=== PATIENT | female | born 1935 | race Caucasian/White ===

== ENCOUNTER 2016-03-19 10:40 | Emergency (ER) | payer OTHER ==
[~2016-03-19] VITALS: Ht 165.1 cm; Wt 49.9 kg
[~2016-03-19 10:40] MED LIST: AMITRIPTYLINE H10 M3 PO; ARIPIPRAZOLE10 MG PO; ARMOUR THYROID60 M1 PO; ASPIR 8181 MG PO; BENTYL 20 MG TA20 M1 PO; BRINTELLIX10 MG PO; CALCIUM 500 +1 EAC5 PO; CIPROFLOXACIN500 M1 PO; DESYREL150 MG PO; FISH OIL 1,0001 EAC8 PO; MAGNESIUM400 MG PO; MULTIVITAMINS1 EAC7 PO; PHENADOZ25 MG RC; RESTORIL30 MG PO; RESTORIL7.5 MG PO; SEROQUEL 25 MG25 M1 PO; SEROQUEL 50 MG50 M1 PO; TOPROL XL25 MG PO; TRAMADOL 50 MG50 MG PO
[2016-03-19] MEDS ORDERED: SEROQUEL 50 MG50 MG PO (11:24)
[2016-03-19] MEDS ORDERED: PHENERGAN 25 MG25 M1 PO (11:27)
[2016-03-19] MEDS ORDERED: LOMOTIL TABLET1 EACH PO (11:28)
[2016-03-19 11:33] LABS: ABSOLUTE NEUTROPHILS 5.4 thou/uL (1.4-8.2); BASOPHILS 1.1 % (0.0-2.0); EOSINOPHILS 0.3 % (0.0-3.0); HEMATOCRIT 41.7 % (37.0-47.0); HEMOGLOBIN 14.2 gm/dL (12.0-15.0); MCH 31.9 pg (26.0-34.0); MCHC 34.2 % (28.0-37.0); MCV 93.2 fL (80.0-100.0); MONOCYTES 5.8 % (1.0-8.0); PLATELET COUNT 381 thou/uL (150-400); POLYS 76.8 % (36.0-66.0); RBC 4.47 mil/uL (4.20-5.00); RDW 13.1 % (10.5-14.5)
[2016-03-19 11:35] LABS: MANUAL DIFF NO
[2016-03-19 11:40] LABS: CALCIUM 9.5 mg/dL (8.5-10.1); CREATININE 0.9 mg/dL (0.6-1.3); POTASSIUM 3.8 mmol/L (3.5-5.1)
[2016-03-19 11:46] LABS: ALBUMIN 3.8 g/dL (3.4-5.0); TOTAL BILIRUBIN 0.2 mg/dL (<0.1-1.0); TOTAL PROTEIN 8.5 g/dL (6.4-8.2)
[2016-03-19 12:28] LABS: URINE BILIRUBIN NEGATIVE (Negative); URINE BLOOD 3+ (Negative); URINE COLOR YELLOW; URINE GLUCOSE-RANDOM* NEGATIVE (Negative); URINE KETONES NEGATIVE (Negative); URINE LEUKOCYTES-REFLEX 1+ (Negative); URINE PROTEIN (DIPSTICK) NEGATIVE (Negative); URINE UROBILINOGEN 0.2 E.U./dl (0.2-1.0)
[2016-03-19 12:42] LABS: AMORPHOUS URATES Many /LPF (None Seen); CASTS None Seen /LPF (None Seen); SQUAMOUS None Seen /LPF (0-3); URINE WBC-REFLEX 6-15 Few /HPF (0-5)
[2016-03-19 12:43] LABS: URINE RBC 3-10 Few /HPF (0-2)
[2016-03-31] MEDS ORDERED: PAXIL10 MG PO (11:28)
[2016-04-05] MEDS ORDERED: OXYCONTIN15 MG PO (09:45)
[2016-04-11] MEDS ORDERED: BENTYL 20 MG TA20 M1 PO (14:17)
[2016-04-11] MEDS ORDERED: MACROBID 100 M100 M1 PO (14:17)
[2016-04-22] MEDS ORDERED: LEVAQUIN 250 M250 MG PO (11:46)
== END 2016-03-19 14:19 | disposition home or self-care (01) ==
LOC: ER 10:40
PROVIDERS: Emergency Medicine
DX: R19.7 Diarrhea, unspecified (principal); E86.0 Dehydration; R53.82 Chronic fatigue, unspecified; E03.9 Hypothyroidism, unspecified; F32.9 Major depressive disorder, single episode, unspecified; Z88.8 Allergy status to other drugs, medicaments and biological substances; Z88.2 Allergy status to sulfonamides

== ENCOUNTER 2016-03-25 10:51 | Inpatient (IN) | payer OTHER ==
[~2016-03-25] VITALS: Ht 165.1 cm; Wt 47.6 kg
[~2016-03-25 10:51] MED LIST changes: +LOMOTIL TABLET1 EACH PO; +PHENERGAN 25 MG25 M1 PO; +SEROQUEL 50 MG50 MG PO
[2016-03-25 10:53] VITALS: BP 167/92
[2016-03-25 11:22] LABS: ABSOLUTE NEUTROPHILS 9.3 thou/uL (1.4-8.2); BASOPHILS 0.7 % (0.0-2.0); EOSINOPHILS 0.1 % (0.0-3.0); HEMATOCRIT 41.8 % (37.0-47.0); LYMPHOCYTES 11.6 % (24.0-44.0); MCH 31.2 pg (26.0-34.0); MCHC 33.6 % (28.0-37.0); MCV 93.1 fL (80.0-100.0); MONOCYTES 5.2 % (1.0-8.0); PLATELET COUNT 354 thou/uL (150-400); POLYS 82.4 % (36.0-66.0); RBC 4.49 mil/uL (4.20-5.00); RDW 13.4 % (10.5-14.5); WBC 11.2 thou/uL (4.0-11.0)
[2016-03-25 11:24] LABS: MANUAL DIFF NO
[2016-03-25 11:30] LABS: ANION GAP 10 mmol/L (7-16); BUN 7 mg/dL (7-18); CALCIUM 9.3 mg/dL (8.5-10.1); CHLORIDE 98 mmol/L (98-107); CO2 24 mmol/L (21-32); CREATININE 0.9 mg/dL (0.6-1.3); GLUCOSE 143 mg/dL (70-99); POTASSIUM 3.8 mmol/L (3.5-5.1); SODIUM 132 mmol/L (136-145)
[2016-03-25 11:36] LABS: ALBUMIN 3.4 g/dL (3.4-5.0); ALKALINE PHOSPHATASE 94 U/L (46-116); DIRECT BILIRUBIN < 0.1 mg/dL (<0.1-0.3); SGOT 17 U/L (15-37); SGPT 18 U/L (30-65); TOTAL BILIRUBIN 0.3 mg/dL (<0.1-1.0); TOTAL PROTEIN 7.6 g/dL (6.4-8.2)
[2016-03-25 12:45] LABS: URINE BILIRUBIN NEGATIVE (Negative); URINE BLOOD NEGATIVE (Negative); URINE COLOR YELLOW; URINE GLUCOSE-RANDOM* NEGATIVE (Negative); URINE KETONES NEGATIVE (Negative); URINE NITRITE NEGATIVE (Negative); URINE PROTEIN (DIPSTICK) NEGATIVE (Negative); URINE SPECIFIC GRAVITY <= 1.005 (1.003-1.035); URINE UROBILINOGEN 0.2 E.U./dl (0.2-1.0)
[2016-03-25 13:35] VITALS: BP 161/82
[2016-03-25 15:48] VITALS: BP 167/75
[2016-03-25 20:00] VITALS: BP 153/79
[2016-03-26 05:43] LABS: HEMATOCRIT 37.2 % (37.0-47.0); HEMOGLOBIN 12.5 gm/dL (12.0-15.0); MCH 31.6 pg (26.0-34.0); MCHC 33.6 % (28.0-37.0); RBC 3.95 mil/uL (4.20-5.00); RDW 13.5 % (10.5-14.5)
[2016-03-26 06:17] LABS: CALCIUM 8.3 mg/dL (8.5-10.1); CREATININE 0.8 mg/dL (0.6-1.3); POTASSIUM 4.2 mmol/L (3.5-5.1)
[2016-03-26 08:00] VITALS: BP 135/77
[2016-03-26 19:00] VITALS: BP 165/92
[2016-03-27 02:55] VITALS: BP 157/91
[2016-03-27 08:48] VITALS: BP 162/91
[2016-03-27 15:37] VITALS: BP 140/87
[2016-03-27 19:20] VITALS: BP 133/87
[2016-03-28 03:00] VITALS: BP 147/86
[2016-03-28 08:00] VITALS: BP 147/94
[2016-03-28 12:22] VITALS: BP 147/94
[2016-03-28] MEDS ORDERED: BENTYL 20 MG TA20 M1 PO (12:25)
[2016-03-28] MEDS ORDERED: FLAGYL500 MG PO (12:25)
[2016-03-28] MEDS ORDERED: CIPRO500 MG PO (12:25)
[2016-03-28 16:36] VITALS: BP 147/94
[2016-03-31] MEDS ORDERED: PAXIL10 MG PO (11:28)
[2016-04-05] MEDS ORDERED: OXYCONTIN15 MG PO (09:45)
[2016-04-11] MEDS ORDERED: BENTYL 20 MG TA20 M1 PO (14:17)
[2016-04-11] MEDS ORDERED: MACROBID 100 M100 M1 PO (14:17)
[2016-04-22] MEDS ORDERED: LEVAQUIN 250 M250 MG PO (11:46)
== END 2016-03-28 17:32 | disposition home health service (06) | DRG 372 ==
LOC: ER 10:51 → 4N 12:51 → EROBS 12:51 → 4N 14:33
PROVIDERS: Emergency Medicine; Hospitalist
DX: A04.9 Bacterial intestinal infection, unspecified (principal); E44.1 Mild protein-calorie malnutrition; Z68.1 Body mass index [BMI] 19.9 or less, adult; K59.00 Constipation, unspecified; I10 Essential (primary) hypertension; G47.00 Insomnia, unspecified; F41.9 Anxiety disorder, unspecified; M79.7 Fibromyalgia; E03.9 Hypothyroidism, unspecified; F32.9 Major depressive disorder, single episode, unspecified; F03.90 Unspecified dementia, unspecified severity, without behavioral disturbance, psychotic disturbance, mood disturbance, and anxiety; Z79.899 Other long term (current) drug therapy; Z79.2 Long term (current) use of antibiotics; Z88.2 Allergy status to sulfonamides; Z88.8 Allergy status to other drugs, medicaments and biological substances; Z91.81 History of falling; Z79.82 Long term (current) use of aspirin
CPT/HCPCS: 10790

== ENCOUNTER 2017-02-10 13:28 | Inpatient (IN) | payer OTHER ==
[~2017-02-10] VITALS: Ht 165.1 cm; Wt 54.4 kg
--- NOTE | ~2017-02-10 | HC ---
[facility] [place] [address] CONSULTATION Name: KIESHA CABRERA Room #: 431-P ADM IN M.R.#: [id number] Admission: 02/10/17 Attend Phys: Cirsti Brown MD Discharge: Date of : 34 Report #: [id number] THIS REPORT FOR: //name// CC: Cristi Jones REASON FOR CONSULTATION: I was asked to evaluate concerning Pseudomonas urinary tract infection. HISTORY OF PRESENT ILLNESS: The patient is an 81-year-old who presents with increased pain, dysuria, low-grade fever and night sweats. She had noted that in December she had failure to thrive and was hospitalized at [facility]. During that hospitalization, she was given IV fluids and nutritional support. Did not find any other specific cause. Urinalysis at that time was unremarkable. Since then, she has gone home to stay with a friend for several weeks. Now back to her home environment, developed increased pain, dysuria or frequency over the last week. In the outpatient clinic, she had a urine study, which showed pyuria, bacteriuria and Pseudomonas growth. Per hospital record, the pseudomonas was resistant to quinolones and imipenem. She had previously been on Levaquin in December and early January. She was admitted for IV antibiotic therapy. ALLERGIES: SULFA, LEXAPRO. MEDICATIONS: As noted on her MAY, which were reviewed. She was started on cefepime this hospital stay. Prior to this, she was on amitriptyline and Tylenol. PAST MEDICAL HISTORY: Chronic fatigue syndrome, fibromyalgia, hypothyroidism, depression, IBS. FAMILY HISTORY: Noncontributory. SOCIAL HISTORY: Nonsmoker, no significant alcohol intake. REVIEW OF SYSTEMS: No cardiopulmonary or GI complaints. PHYSICAL EXAMINATION: VITAL SIGNS: Afebrile and hemodynamically stable. GENERAL: She was alert and cooperative and pleasant, in no acute distress. HEENT: Unremarkable. NECK: Supple. LUNGS: Clear. HEART: Regular, without murmur. ABDOMEN: Soft with protuberance in the lower abdomen and pelvic region. Palpable bladder. No CVA tenderness. SKIN: Unremarkable. [facility] [address] [place] [address] CONSULTATION Name: KIESHA CABRERA Room #: 431-P [facility] IN ..#: [id number] Admission: 02/10/17 Attend Phys: Cristi Brown MD Discharge: Date of : 34 Report #: [id number] LYMPH: Unremarkable. EXTREMITIES: Unremarkable. NEUROLOGIC: Nonfocal. LABORATORY STUDIES: Urine culture, Gram-negative bacilli. Hemoglobin 11.5, WBC 8.4, platelet count 323,000. Sodium 142, potassium 4.3, bicarbonate 27, creatinine 0.9, lactate 0.8. Urinalysis, many wbc's and moderate bacteria. Liver function tests normal except for an alkaline phosphatase of 125. CT scan of the abdomen and pelvis, small hiatal hernia, large amount of stool through the colon, distended urinary bladder. IMPRESSION: An 81-year-old with Pseudomonas urinary tract infection and I suspect poor bladder emptying. PLAN: Would recommend continuing cefepime. We will obtain outside urine culture results to confirm her report. Await repeat urine culture. We will check postvoid residual. Likely need intervention regarding abnormal bladder emptying. <ELECTRONICALLY SIGNED> By: Wu Traylor MD 02/11/17 1528 0845 1309 Wu Traylor MD /nt
[~2017-02-10 13:28] MED LIST changes: +AMITRIPTYLINE H75 M1 PO; +CIPRO500 MG PO; +FLAGYL500 MG PO; +LEVAQUIN 250 M250 MG PO; +MACROBID 100 M100 M1 PO; +OXYCONTIN15 MG PO; +PAXIL10 MG PO
[2017-02-10 13:30] VITALS: BP 155/108
[2017-02-10 14:11] LABS: URINE BILIRUBIN NEGATIVE (Negative); URINE BLOOD TRACE (Negative); URINE COLOR YELLOW; URINE GLUCOSE-RANDOM* NEGATIVE (Negative); URINE KETONES NEGATIVE (Negative); URINE NITRITE POSITIVE (Negative); URINE PROTEIN (DIPSTICK) NEGATIVE (Negative); URINE SPECIFIC GRAVITY 1.015 (1.005-1.035); URINE UROBILINOGEN 0.2 E.U./dl (0.2-1.0)
[2017-02-10 14:11] LABS: ABSOLUTE NEUTROPHILS 5.2 thou/uL (1.4-8.2); BASOPHILS 1.5 % (0.0-2.0); EOSINOPHILS 1.7 % (0.0-3.0); HEMATOCRIT 39.9 % (37.0-47.0); HEMOGLOBIN 13.6 gm/dL (12.0-15.0); LYMPHOCYTES 22.5 % (24.0-44.0); MANUAL DIFF NO; MCH 33.2 pg (26.0-34.0); MCHC 34.2 g/dL (28.0-37.0); MCV 97.1 fL (80.0-100.0); MONOCYTES 7.4 % (1.0-8.0); PLATELET COUNT 383 thou/uL (150-400); POLYS 66.9 % (36.0-66.0); RBC 4.11 mil/uL (4.20-5.00); RDW 14.4 % (10.5-14.5); WBC 7.8 thou/uL (4.0-11.0)
[2017-02-10 14:19] LABS: CALCIUM 8.9 mg/dL (8.5-10.1); CREATININE 0.8 mg/dL (0.6-1.0); POTASSIUM 3.8 mmol/L (3.5-5.1)
[2017-02-10 14:25] LABS: ALBUMIN 3.6 g/dL (3.4-5.0); TOTAL BILIRUBIN 0.2 mg/dL (<0.1-1.0); TOTAL PROTEIN 7.8 g/dL (6.4-8.2)
[2017-02-10 14:35] LABS: CASTS None Seen /LPF (None Seen); CRYSTALS None Seen /LPF (None Seen); SQUAMOUS 0-3 Few /LPF (0-3); URINE RBC 0-2 Rare /HPF (0-2); URINE WBC >25 Many /HPF (0-5)
[2017-02-10 14:50] VITALS: BP 155/108
[2017-02-10] MEDS ORDERED: APAP650 PO (15:02)
[2017-02-10 16:12] VITALS: BP 150/74
[2017-02-10 16:38] VITALS: BP 154/92
[2017-02-10 20:00] VITALS: BP 167/71
[2017-02-11 04:37] LABS: HEMATOCRIT 34.2 % (37.0-47.0); MCH 32.6 pg (26.0-34.0); MCHC 33.6 g/dL (28.0-37.0); MCV 97.2 fL (80.0-100.0); RBC 3.52 mil/uL (4.20-5.00); RDW 14.1 % (10.5-14.5); WBC 8.4 thou/uL (4.0-11.0)
[2017-02-11 04:48] VITALS: BP 133/69
[2017-02-11 04:48] LABS: CALCIUM 8.2 mg/dL (8.5-10.1); CREATININE 0.9 mg/dL (0.6-1.0); POTASSIUM 4.3 mmol/L (3.5-5.1)
[2017-02-11 04:49] LABS: HEMOGLOBIN 11.5 gm/dL (12.0-15.0)
[2017-02-11 08:00] VITALS: BP 147/70
[2017-02-11 16:00] VITALS: BP 149/87
[2017-02-12 04:17] VITALS: BP 125/70
[2017-02-12 06:32] LABS: HEMATOCRIT 37.8 % (37.0-47.0); HEMOGLOBIN 12.8 gm/dL (12.0-15.0); MCH 32.8 pg (26.0-34.0); MCHC 33.8 g/dL (28.0-37.0); RBC 3.9 mil/uL (4.20-5.00); WBC 8.7 thou/uL (4.0-11.0)
[2017-02-12 06:38] LABS: CALCIUM 8.6 mg/dL (8.5-10.1); MAGNESIUM 2.1 mg/dL (1.8-2.4); POTASSIUM 3.9 mmol/L (3.5-5.1)
[2017-02-12 08:15] VITALS: BP 154/84
[2017-02-12 14:45] VITALS: BP 158/90
[2017-02-12 19:30] VITALS: BP 152/81
[2017-02-13 03:07] VITALS: BP 151/85
[2017-02-13 07:20] VITALS: BP 158/87
[2017-02-13 16:15] VITALS: BP 126/96
[2017-02-13 19:19] VITALS: BP 164/90
[2017-02-14 03:40] VITALS: BP 145/87
[2017-02-14 07:05] VITALS: BP 165/94
[2017-02-14 15:35] VITALS: BP 145/81
[2017-02-14 21:36] VITALS: BP 140/75
[2017-02-15 03:39] VITALS: BP 168/90
[2017-02-15 08:00] VITALS: BP 150/88
[2017-02-15 16:00] VITALS: BP 150/93
[2017-02-15 20:16] VITALS: BP 152/99
[2017-02-16 04:19] VITALS: BP 142/94
[2017-02-16 08:00] VITALS: BP 155/96
[2017-02-16] MEDS ORDERED: SYNTHROID50 MCG PO (09:57)
[2017-02-16] MEDS ORDERED: RESTORIL15 MG PO (09:59)
[2017-02-16] MEDS ORDERED: AMITRIPTYLINE H25 M2 PO (09:59)
[2017-02-16 11:48] LABS: HEMOGLOBIN 12.4 gm/dL (12.0-15.0); MCH 32.6 pg (26.0-34.0); MCHC 33.6 g/dL (28.0-37.0); MCV 97.1 fL (80.0-100.0); RBC 3.81 mil/uL (4.20-5.00); RDW 14.2 % (10.5-14.5); WBC 6.2 thou/uL (4.0-11.0)
[2017-02-16 16:00] VITALS: BP 138/79
[2017-02-16 21:00] VITALS: BP 157/94
[2017-02-17 04:30] VITALS: BP 144/90
[2017-02-17 08:18] VITALS: BP 135/95
[2017-02-17 15:10] VITALS: BP 176/90
[2017-02-17 19:43] VITALS: BP 147/89
[2017-02-18 04:54] VITALS: BP 138/83
[2017-02-18 08:00] VITALS: BP 148/88
[2017-02-18 08:24] LABS: URINE BILIRUBIN NEGATIVE (Negative); URINE BLOOD NEGATIVE (Negative); URINE COLOR YELLOW; URINE GLUCOSE-RANDOM* NEGATIVE (Negative); URINE KETONES NEGATIVE (Negative); URINE LEUKOCYTES-REFLEX NEGATIVE (Negative); URINE PROTEIN (DIPSTICK) NEGATIVE (Negative); URINE SPECIFIC GRAVITY <= 1.005 (1.005-1.035); URINE UROBILINOGEN 0.2 E.U./dl (0.2-1.0)
[2017-02-18 11:21] VITALS: BP 148/88
[2017-02-18 12:18] VITALS: BP 148/88
[2017-02-18] MEDS ORDERED: COLACE 100 MG100 MG PO (14:09)
[2017-02-18] MEDS ORDERED: HYDROCODON-ACE1 EAC7 PO (14:09)
[2017-02-18] MEDS ORDERED: FLOMAX0.4 MG PO (14:09)
[2017-02-18 14:20] VITALS: BP 148/88
[2017-02-18 15:02] VITALS: BP 148/88
== END 2017-02-18 15:27 | disposition home health service (06) | DRG 690 ==
LOC: ER 13:28 → EROBS 14:43 → 4E 14:43 → ENTRNSPT 02-18 15:18 → EDTRNSPTSTS 02-18 15:21 → 4E 02-18 15:27
PROVIDERS: Hospitalist; Internal Medicine; Nurse Practitioner
DX: N39.0 Urinary tract infection, site not specified (principal); K59.00 Constipation, unspecified; B96.5 Pseudomonas (aeruginosa) (mallei) (pseudomallei) as the cause of diseases classified elsewhere; M62.84 Sarcopenia; R53.82 Chronic fatigue, unspecified; E03.9 Hypothyroidism, unspecified; F32.9 Major depressive disorder, single episode, unspecified; Z60.2 Problems related to living alone; R41.89 Other symptoms and signs involving cognitive functions and awareness; R33.9 Retention of urine, unspecified; G47.00 Insomnia, unspecified; Z88.2 Allergy status to sulfonamides; Z88.8 Allergy status to other drugs, medicaments and biological substances; Z79.899 Other long term (current) drug therapy
CPT/HCPCS: 10084

== ENCOUNTER → 2017-02-21 | Outpatient (CLI) | payer OTHER ==
[~2017-02-21] MED LIST changes: +ALPRAZOLAM 0.0.25 M1 PO; +AMITRIPTYLINE H25 M2 PO; +AMLODIPINE BESYL5 M1 PO; +APAP650 PO; +COLACE 100 MG100 MG PO; +COMPAZINE10 MG PO; +DALMANE15 MG PO; +FLOMAX0.4 MG PO; +GABAPENTIN 100100 MG PO; +HYDROCODON-ACE1 EAC7 PO; +KEFLEX500 M1 PO; +LIDOCAINE1 EACH TRANSDERM; +LISINOPRIL10 MG PO; +LOPRESSOR50 PO; +MELATONIN1 MG PO; +MELATONIN5 M1 PO; +METOPROLOL SUCC50 MG PO; +MIRALAX17 GM PO; +NITROGLYCERIN0.4 MG SUBLING; +ONDANSETRON HCL4 M2 PO; +PANTOPRAZOLE SO40 M1 PO; +RESTORIL15 MG PO; +STOOL SOFTENER100 M1 PO; +SYNTHROID50 MCG PO; +SYNTHROID75 MCG PO; +TOPROL XL100 MG PO; +TRAZODONE HCL100 MG PO; +TYLENOL EXTRA500 MG PO; +VITAMIN D3400 UNIT PO; +XANAX 0.25 MG0.25 MG PO
== END ==
LOC: SEN 08:46
DX: N39.0 Urinary tract infection, site not specified (principal); R53.82 Chronic fatigue, unspecified; G47.09 Other insomnia; R51 Headache

== ENCOUNTER 2017-05-30 07:57 | Inpatient (IN) | payer OTHER ==
[~2017-05-30] VITALS: Ht 165.1 cm; Wt 55.2 kg
--- NOTE | ~2017-05-30 | 2DMMODE ---
[facility] [address] [place] [address] 2 D/M-MODE ECHOCARDIOGRAM Name: RICKKIESHA Room #: 453-P ADM IN M.R.#: [id number] Admission: 05/30/17 Attend Phys: Kushal Morales Discharge: Date of : 34 Date of Service: 05/30/17 1459 Report #: [id number] THIS REPORT FOR: //name// APPROVED REPORT Study performed: 05/30/2017 13:24:08 EXAM: Comprehensive 2D, Doppler, and color-flow Echocardiogram Patient Location: Echo lab Room #: [facility] Status: routine BSA: 1.59 HR: 86 bpm BP: 142/81 mmHg Other Information Study Quality: Adequate Indications Syncope 2D Dimensions RVDd: 27.75 mm LVEF(%): 59.88 (>50%) IVSd: 9.64 (7-11mm) LVOT Diam: 18.99 (18-24mm) LVDd: 32.36 mm PWd: 9.73 (7-11mm) Ascending Ao: 34.47 (22-36mm) LVDs: 22.37 (25-40mm) Aortic Root: 31.53 mm IVC: 15.00 mm Luque's LVEF: 59.88 % Volumes Left Atrial Volume (Systole) Single Plane 4CH: 19.82 mL Single Plane 2CH: 21.51 mL LA ESV Index: 17.00 mL/m2 Aortic Valve AoV Peak Sumit.: 1.09 m/s AO Peak Gr.: 4.72 mmHg LVOT Max P.72 mmHg LVOT Max V: 0.96 m/s FLORES Vmax: 2.51 cm2 Mitral Valve E/A Ratio: 0.6 MV Decel. Time: 231.39 ms MV E Max Sumit.: 0.51 m/s [facility] [place] [address] 2 D/M-MODE ECHOCARDIOGRAM Name: KIESHA CABRERA Room #: 453-P [facility] IN M.R.#: [id number] Admission: 05/30/17 Attend Phys: Kushal Morales Discharge: Date of : 34 Date of Service: 05/30/17 1459 Report #: [id number] MV A Sumit.: 0.84 m/s MV PHT: 67.10 ms IVRT: 138.41 ms Pulmonary Valve PV Peak Sumit.: 0.53 m/s PV Peak Gr.: 1.12 mmHg Pulmonary Vein P Vein S: 0.59 m/s P Vein A: 0.35 m/s P Vein D: 0.68 m/s P Vein A Dur.: 138.4 msec P Vein S/D Ratio: 0.87 Tricuspid Valve TR Peak Sumit.: 2.12 m/s TR Peak Gr.: 17.92 mmHg PA Pressure: 23.00 mmHg Left Ventricle The left ventricle is normal size. There is normal left ventricular wall thickness. The left ventricular systolic function is normal. The left ventricular ejection fraction is within the normal range. LVEF is 55-60%. Grade I - abnormal relaxation pattern. Right Ventricle The right ventricle is normal size. The right ventricular systolic function is normal. Atria The left atrium size is normal. The right atrium size is normal. Aortic Valve The aortic valve is normal in structure. Aortic valve is calcified. Mild aortic regurgitation. There is no aortic valvular stenosis. Mitral Valve The mitral valve is normal in structure. Trace mitral regurgitation. No evidence of mitral valve stenosis. Tricuspid Valve The tricuspid valve is normal in structure. There is trace tricuspid regurgitation. Estimated PAP 23 mmHg. There is no pulmonary hypertension. Pulmonic Valve [address] [address] 2 D/M-MODE ECHOCARDIOGRAM Name: KIESHA CABRERA Room #: 453-P [facility] IN M.R.#: [id number] Admission: 05/30/17 Attend Phys: Kushal Morales Discharge: Date of : 34 Date of Service: 05/30/17 1459 Report #: [id number] The pulmonary valve is normal in structure. There is no pulmonic valvular regurgitation. Great Vessels The aortic root is normal in size. IVC is normal in size and collapses >50% with inspiration. Pericardium There is no pericardial effusion. <Conclusion> The left ventricle is normal size. There is normal left ventricular wall thickness. The left ventricular systolic function is normal. The right ventricle is normal size. The left atrium size is normal. Mild aortic regurgitation. Trace mitral regurgitation. There is trace tricuspid regurgitation. Estimated PAP 23 mmHg. <ELECTRONICALLY SIGNED> By: Ottoniel Blue MD 05/30/17 1459 1459 1459 Ottoniel Blue MD /INF
--- NOTE | ~2017-05-30 | EKG ---
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
[~2017-05-30 07:57] MED LIST changes: -ALPRAZOLAM 0.0.25 M1 PO; -AMLODIPINE BESYL5 M1 PO; -COMPAZINE10 MG PO; -DALMANE15 MG PO; -GABAPENTIN 100100 MG PO; -KEFLEX500 M1 PO; -LIDOCAINE1 EACH TRANSDERM; -LISINOPRIL10 MG PO; -LOPRESSOR50 PO; -MELATONIN1 MG PO; -MELATONIN5 M1 PO; -METOPROLOL SUCC50 MG PO; -MIRALAX17 GM PO; -NITROGLYCERIN0.4 MG SUBLING; -ONDANSETRON HCL4 M2 PO; -PANTOPRAZOLE SO40 M1 PO; -STOOL SOFTENER100 M1 PO; -SYNTHROID75 MCG PO; -TOPROL XL100 MG PO; -TRAZODONE HCL100 MG PO; -TYLENOL EXTRA500 MG PO; -VITAMIN D3400 UNIT PO; -XANAX 0.25 MG0.25 MG PO
[2017-05-30 07:59] VITALS: BP 133/88
[2017-05-30 08:38] LABS: ABSOLUTE NEUTROPHILS 7.9 thou/uL (1.4-8.2); BASOPHILS 1.4 % (0.0-2.0); EOSINOPHILS 0.5 % (0.0-3.0); HEMATOCRIT 42.3 % (37.0-47.0); HEMOGLOBIN 14.5 gm/dL (12.0-15.0); LYMPHOCYTES 11.1 % (24.0-44.0); MCH 31.8 pg (26.0-34.0); MCHC 34.3 g/dL (28.0-37.0); MCV 92.7 fL (80.0-100.0); MONOCYTES 5.6 % (1.0-8.0); PLATELET COUNT 298 thou/uL (150-400); POLYS 81.4 % (36.0-66.0); RBC 4.56 mil/uL (4.20-5.00); RDW 13.3 % (10.5-14.5); WBC 9.7 thou/uL (4.0-11.0)
[2017-05-30 08:47] LABS: ANION GAP 10 mmol/L (7-16); BUN 10 mg/dL (7-18); CALCIUM 9.3 mg/dL (8.5-10.1); CHLORIDE 101 mmol/L (98-107); CO2 26 mmol/L (21-32); CREATININE 0.8 mg/dL (0.6-1.0); GLUCOSE 107 mg/dL (74-106); POTASSIUM 4.1 mmol/L (3.5-5.1); SODIUM 137 mmol/L (136-145)
[2017-05-30 08:56] LABS: TROPONIN-I < 0.04 ng/mL (<0.06)
[2017-05-30 11:03] VITALS: BP 133/88
[2017-05-30 12:25] VITALS: BP 142/81
[2017-05-30 12:58] LABS: TSH 3.783 uIU/mL (0.358-3.740)
[2017-05-30 15:39] VITALS: BP 144/82
[2017-05-30 19:41] VITALS: BP 140/72
[2017-05-31 03:41] VITALS: BP 154/93
[2017-05-31 06:18] LABS: CALCIUM 8.5 mg/dL (8.5-10.1); CREATININE 0.9 mg/dL (0.6-1.0); PHOSPHORUS 3.4 mg/dL (2.5-4.9); POTASSIUM 3.8 mmol/L (3.5-5.1)
[2017-05-31 07:20] VITALS: BP 161/87
[2017-05-31 15:10] VITALS: BP 140/72
[2017-05-31 19:33] VITALS: BP 163/76
[2017-06-01 04:07] VITALS: BP 144/75
[2017-06-01 08:00] VITALS: BP 147/76
[2017-06-01 13:18] LABS: URINE BILIRUBIN NEGATIVE (Negative); URINE BLOOD NEGATIVE (Negative); URINE CLARITY CLEAR; URINE COLOR YELLOW; URINE GLUCOSE-RANDOM* NEGATIVE (Negative); URINE KETONES NEGATIVE (Negative); URINE LEUKOCYTES NEGATIVE (Negative); URINE NITRITE NEGATIVE (Negative); URINE PROTEIN (DIPSTICK) NEGATIVE (Negative); URINE SPECIFIC GRAVITY <= 1.005 (1.005-1.035); URINE UROBILINOGEN 0.2 E.U./dl (0.2-1.0)
[2017-06-01 16:00] VITALS: BP 168/87
[2017-06-01 20:11] VITALS: BP 164/87
[2017-06-02 05:21] VITALS: BP 145/82
[2017-06-02 07:47] VITALS: BP 143/82
[2017-06-02] MEDS ORDERED: XANAX 0.25 MG0.25 MG PO (13:10)
[2017-06-02] MEDS ORDERED: SYNTHROID75 MCG PO (13:13)
[2017-06-02 15:48] VITALS: BP 143/82
== END 2017-06-02 17:53 | disposition home health service (06) | DRG 312 ==
LOC: ER 07:57 → EROBS 09:25 → 4W 09:25
PROVIDERS: Emergency Medicine; Hospitalist
DX: R55 Syncope and collapse (principal); F41.9 Anxiety disorder, unspecified; E86.0 Dehydration; R53.82 Chronic fatigue, unspecified; E03.9 Hypothyroidism, unspecified; F03.90 Unspecified dementia, unspecified severity, without behavioral disturbance, psychotic disturbance, mood disturbance, and anxiety; K58.9 Irritable bowel syndrome, unspecified; Z79.899 Other long term (current) drug therapy; Z88.2 Allergy status to sulfonamides; Z88.8 Allergy status to other drugs, medicaments and biological substances
CPT/HCPCS: 10045

== ENCOUNTER 2017-06-15 13:15 | Inpatient (IN) | payer OTHER ==
[~2017-06-15] VITALS: Ht 165.1 cm; Wt 56.0 kg
--- NOTE | ~2017-06-15 | EKG ---
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: [facility] : 1935 Requested By: Nancy Zazueta Order Number: [id number] MD: Abdias Orozco Measurements Intervals [place] Rate: 91 P: -5 [place]: 189 QRS: -42 QRSD: 128 T: 23 QT: 387 QTc: 477 Interpretive Statements Sinus rhythm RBBB and LAFB Probable left ventricular hypertrophy Compared to ECG 05/30/2017 10:04:53 No significant changes Electronically Signed On 06-15-2017 20:00:32 CDT by Abdias Orozco [email or web address] <ELECTRONICALLY SIGNED> By: Abdias Orozco MD 06/15/171999 25 25 Abdias Orozco MD /EPI
[~2017-06-15 13:15] MED LIST changes: +SYNTHROID75 MCG PO; +XANAX 0.25 MG0.25 MG PO
[2017-06-15 13:16] VITALS: BP 145/81
[2017-06-15 14:05] LABS: ABSOLUTE NEUTROPHILS 9.3 thou/uL (1.4-8.2); BASOPHILS 0.6 % (0.0-2.0); EOSINOPHILS 0.7 % (0.0-3.0); HEMATOCRIT 32.8 % (37.0-47.0); HEMOGLOBIN 11.2 gm/dL (12.0-15.0); LYMPHOCYTES 10.4 % (24.0-44.0); MCH 32.2 pg (26.0-34.0); MCHC 34.3 g/dL (28.0-37.0); MCV 93.9 fL (80.0-100.0); MONOCYTES 3.6 % (1.0-8.0); PLATELET COUNT 305 thou/uL (150-400); POLYS 84.7 % (36.0-66.0); RBC 3.49 mil/uL (4.20-5.00)
[2017-06-15 14:15] LABS: ANION GAP 8 mmol/L (7-16); BUN 20 mg/dL (7-18); CALCIUM 8.8 mg/dL (8.5-10.1); CHLORIDE 100 mmol/L (98-107); CO2 25 mmol/L (21-32); GLUCOSE 96 mg/dL (74-106); POTASSIUM 3.4 mmol/L (3.5-5.1); SODIUM 133 mmol/L (136-145)
[2017-06-15 14:24] LABS: TROPONIN-I < 0.04 ng/mL (<0.06)
[2017-06-15 15:10] VITALS: BP 150/72
[2017-06-15 15:11] LABS: URINE BILIRUBIN NEGATIVE (Negative); URINE BLOOD NEGATIVE (Negative); URINE CLARITY CLEAR; URINE COLOR YELLOW; URINE GLUCOSE-RANDOM* NEGATIVE (Negative); URINE KETONES NEGATIVE (Negative); URINE LEUKOCYTES NEGATIVE (Negative); URINE NITRITE NEGATIVE (Negative); URINE PROTEIN (DIPSTICK) NEGATIVE (Negative); URINE SPECIFIC GRAVITY <= 1.005 (1.005-1.035); URINE UROBILINOGEN 0.2 E.U./dl (0.2-1.0)
[2017-06-15 15:45] VITALS: BP 169/84
[2017-06-15 16:00] VITALS: BP 148/78
[2017-06-15 20:00] VITALS: BP 124/74
[2017-06-16 04:55] VITALS: BP 147/86
[2017-06-16 06:03] LABS: ABSOLUTE NEUTROPHILS 7.3 thou/uL (1.4-8.2); BASOPHILS 0.7 % (0.0-2.0); EOSINOPHILS 2.8 % (0.0-3.0); HEMATOCRIT 31.9 % (37.0-47.0); LYMPHOCYTES 12.1 % (24.0-44.0); MCHC 34.6 g/dL (28.0-37.0); MCV 92.6 fL (80.0-100.0); MONOCYTES 6.3 % (1.0-8.0); PLATELET COUNT 296 thou/uL (150-400); POLYS 78.1 % (36.0-66.0); RBC 3.44 mil/uL (4.20-5.00); RDW 13.8 % (10.5-14.5); WBC 9.3 thou/uL (4.0-11.0)
[2017-06-16 06:08] LABS: CALCIUM 8.8 mg/dL (8.5-10.1); CREATININE 0.9 mg/dL (0.6-1.0); POTASSIUM 3.1 mmol/L (3.5-5.1)
[2017-06-16 08:30] VITALS: BP 164/91
[2017-06-16 16:27] VITALS: BP 139/76
[2017-06-16 20:29] VITALS: BP 138/80
[2017-06-17] VITALS: BP 146/82
[2017-06-17 04:00] VITALS: BP 132/73
[2017-06-17 08:39] VITALS: BP 146/70
[2017-06-17 16:00] VITALS: BP 157/75
[2017-06-17 20:12] VITALS: BP 118/61
[2017-06-18] VITALS (8 sets, daily range): BP systolic 108–158; BP diastolic 48–95
[2017-06-19 04:00] VITALS: BP 151/83
[2017-06-19 05:39] LABS: ABSOLUTE NEUTROPHILS 6.2 thou/uL (1.4-8.2); BASOPHILS 0.9 % (0.0-2.0); EOSINOPHILS 3.1 % (0.0-3.0); HEMATOCRIT 28.2 % (37.0-47.0); HEMOGLOBIN 9.8 gm/dL (12.0-15.0); LYMPHOCYTES 20.7 % (24.0-44.0); MCH 32.8 pg (26.0-34.0); MCHC 34.9 g/dL (28.0-37.0); MONOCYTES 6.2 % (1.0-8.0); PLATELET COUNT 272 thou/uL (150-400); POLYS 69.1 % (36.0-66.0); RDW 14.4 % (10.5-14.5); WBC 8.9 thou/uL (4.0-11.0)
[2017-06-19 05:46] LABS: CALCIUM 8.8 mg/dL (8.5-10.1); CREATININE 0.8 mg/dL (0.6-1.0); POTASSIUM 4.2 mmol/L (3.5-5.1)
[2017-06-19 07:09] VITALS: BP 166/70
[2017-06-19] MEDS ORDERED: RESTORIL15 MG PO (15:15)
[2017-06-19] MEDS ORDERED: LOPRESSOR50 PO (15:15)
[2017-06-19] MEDS ORDERED: GABAPENTIN 100100 MG PO (15:15)
[2017-06-19 15:30] VITALS: BP 166/70
[2017-06-19 15:40] VITALS: BP 145/75
[2017-06-19 15:46] VITALS: BP 166/70
== END 2017-06-19 18:00 | disposition home health service (06) | DRG 312 ==
LOC: ER 13:15 → EROBS 15:01 → 4N 15:01
PROVIDERS: Emergency Medicine; Family Medicine; Hospitalist
DX: R55 Syncope and collapse (principal); E43 Unspecified severe protein-calorie malnutrition; F11.20 Opioid dependence, uncomplicated; R53.82 Chronic fatigue, unspecified; Z60.2 Problems related to living alone; G89.29 Other chronic pain; E03.9 Hypothyroidism, unspecified; F32.9 Major depressive disorder, single episode, unspecified; Z88.2 Allergy status to sulfonamides; Z88.8 Allergy status to other drugs, medicaments and biological substances; Z91.14 Patient's other noncompliance with medication regimen
CPT/HCPCS: 10790

== ENCOUNTER → 2017-07-10 | Outpatient (CLI) | payer OTHER ==
[~2017-07-10] VITALS: Ht 165.1 cm; Wt 54.4 kg
[~2017-07-10] MED LIST changes: +GABAPENTIN 100100 MG PO; +LIDOCAINE1 EACH TRANSDERM; +LOPRESSOR50 PO; +ONDANSETRON HCL4 M2
[2017-07-10 14:38] VITALS: BP 146/106
== END ==
LOC: SEN
DX: M54.9 Dorsalgia, unspecified (principal); E03.9 Hypothyroidism, unspecified; F32.9 Major depressive disorder, single episode, unspecified

== ENCOUNTER 2017-08-31 14:39 | Emergency (ER) | payer OTHER ==
[~2017-08-31] VITALS: Ht 165.1 cm; Wt 54.4 kg
--- NOTE | ~2017-08-31 | EKG ---
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
[~2017-08-31 14:39] MED LIST changes: -ONDANSETRON HCL4 M2; +ONDANSETRON HCL4 M2 PO
[2017-08-31 15:47] LABS: ABSOLUTE NEUTROPHILS 5.3 thou/uL (1.4-8.2); BASOPHILS 1.5 % (0.0-2.0); EOSINOPHILS 1.1 % (0.0-3.0); HEMATOCRIT 38.2 % (37.0-47.0); HEMOGLOBIN 13.2 gm/dL (12.0-15.0); LYMPHOCYTES 21.9 % (24.0-44.0); MCH 31.8 pg (26.0-34.0); MCHC 34.4 g/dL (28.0-37.0); MCV 92.5 fL (80.0-100.0); MONOCYTES 6.8 % (1.0-8.0); PLATELET COUNT 252 thou/uL (150-400); POLYS 68.7 % (36.0-66.0); RBC 4.13 mil/uL (4.20-5.00); RDW 13.3 % (10.5-14.5); WBC 7.7 thou/uL (4.0-11.0)
[2017-08-31 16:00] LABS: ANION GAP 6 mmol/L (7-16); BUN 13 mg/dL (7-18); CHLORIDE 101 mmol/L (98-107); CO2 28 mmol/L (21-32); CREATININE 0.9 mg/dL (0.6-1.0); GLUCOSE 94 mg/dL (74-106); POTASSIUM 3.8 mmol/L (3.5-5.1); SODIUM 135 mmol/L (136-145)
[2017-08-31 16:08] LABS: ALBUMIN 3.5 g/dL (3.4-5.0); SGOT 16 U/L (15-37); SGPT 19 U/L (30-65); TOTAL BILIRUBIN 0.2 mg/dL (<0.1-1.0); TOTAL PROTEIN 7.1 g/dL (6.4-8.2); TROPONIN-I <0.06 ng/mL (<0.06)
[2017-08-31 16:27] LABS: URINE BILIRUBIN NEGATIVE (Negative); URINE BLOOD NEGATIVE (Negative); URINE CLARITY CLEAR; URINE COLOR YELLOW; URINE GLUCOSE-RANDOM* NEGATIVE (Negative); URINE KETONES NEGATIVE (Negative); URINE NITRITE-REFLEX NEGATIVE (Negative); URINE PROTEIN (DIPSTICK) NEGATIVE (Negative); URINE SPECIFIC GRAVITY <= 1.005 (1.005-1.035); URINE UROBILINOGEN 0.2 E.U./dl (0.2-1.0)
[2017-08-31 16:31] LABS: URINE LEUKOCYTES-REFLEX 1+ (Negative)
[2017-08-31 16:43] LABS: BACTERIA-REFLEX 1-9 Few /HPF (None Seen); CASTS None Seen /LPF (None Seen); CRYSTALS None Seen /LPF (None Seen); SQUAMOUS 0-3 Few /LPF (0-3); URINE RBC None Seen /HPF (0-2); URINE WBC-REFLEX 0-5 Rare /HPF (0-5)
[2017-08-31] MEDS ORDERED: KEFLEX500 M1 PO (18:35)
[2017-08-31] MEDS ORDERED: ONDANSETRON HCL4 M2 PO (18:35)
== END 2017-08-31 18:49 | disposition home or self-care (01) ==
LOC: ER 14:39
PROVIDERS: Physician Assistant
DX: T39.1X5A Adverse effect of 4-Aminophenol derivatives, initial encounter (principal); G44.209 Tension-type headache, unspecified, not intractable; N39.0 Urinary tract infection, site not specified; R42 Dizziness and giddiness; R53.1 Weakness; M79.7 Fibromyalgia; E03.9 Hypothyroidism, unspecified; F32.9 Major depressive disorder, single episode, unspecified; Z88.2 Allergy status to sulfonamides; Z88.8 Allergy status to other drugs, medicaments and biological substances

== ENCOUNTER 2017-09-09 09:21 | Inpatient (IN) | payer OTHER ==
[~2017-09-09] VITALS: Ht 165.1 cm; Wt 57.0 kg
--- NOTE | ~2017-09-09 | EKG ---
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
[~2017-09-09 09:21] MED LIST changes: +KEFLEX500 M1 PO
[2017-09-09 09:36] VITALS: BP 160/78
[2017-09-09 10:01] LABS: ABSOLUTE NEUTROPHILS 5.4 thou/uL (1.4-8.2); BASOPHILS 1.2 % (0.0-2.0); EOSINOPHILS 1.2 % (0.0-3.0); HEMATOCRIT 40.3 % (37.0-47.0); HEMOGLOBIN 13.8 gm/dL (12.0-15.0); MCH 31.4 pg (26.0-34.0); MCHC 34.2 g/dL (28.0-37.0); MCV 91.7 fL (80.0-100.0); MONOCYTES 5.6 % (1.0-8.0); PLATELET COUNT 240 thou/uL (150-400); RDW 13.4 % (10.5-14.5); WBC 7.2 thou/uL (4.0-11.0)
[2017-09-09 10:09] LABS: ANION GAP 6 mmol/L (7-16); BUN 11 mg/dL (7-18); CALCIUM 9.4 mg/dL (8.5-10.1); CHLORIDE 102 mmol/L (98-107); CO2 29 mmol/L (21-32); GLUCOSE 124 mg/dL (74-106); POTASSIUM 4.1 mmol/L (3.5-5.1); SODIUM 137 mmol/L (136-145)
[2017-09-09 10:14] LABS: INR 1.1; PROTIME 11.1 Seconds (9.3-11.4)
[2017-09-09 10:18] LABS: ALBUMIN 3.6 g/dL (3.4-5.0); SGOT 16 U/L (15-37); SGPT 20 U/L (30-65); TOTAL BILIRUBIN 0.3 mg/dL (<0.1-1.0); TOTAL PROTEIN 7.3 g/dL (6.4-8.2); TROPONIN-I <0.06 ng/mL (<0.06)
[2017-09-09 10:36] LABS: URINE BILIRUBIN NEGATIVE (Negative); URINE BLOOD NEGATIVE (Negative); URINE CLARITY CLEAR; URINE COLOR YELLOW; URINE GLUCOSE-RANDOM* NEGATIVE (Negative); URINE KETONES NEGATIVE (Negative); URINE LEUKOCYTES-REFLEX NEGATIVE (Negative); URINE NITRITE-REFLEX NEGATIVE (Negative); URINE PROTEIN (DIPSTICK) NEGATIVE (Negative); URINE UROBILINOGEN 0.2 E.U./dl (0.2-1.0)
[2017-09-09] MEDS ORDERED: TRAZODONE HCL100 MG PO (12:25)
[2017-09-09] MEDS ORDERED: GABAPENTIN 100100 MG PO (12:25)
[2017-09-09] MEDS ORDERED: MELATONIN1 MG PO (12:27)
[2017-09-09] MEDS ORDERED: COMPAZINE10 MG PO ×2 (12:27→12:29)
[2017-09-09] MEDS ORDERED: MELATONIN5 M1 PO (12:28)
[2017-09-09] MEDS ORDERED: TOPROL XL100 MG PO (12:30)
[2017-09-09] MEDS ORDERED: TYLENOL EXTRA500 MG PO (12:32)
[2017-09-09] MEDS ORDERED: STOOL SOFTENER100 M1 PO (12:33)
[2017-09-09 12:51] LABS: TSH 0.608 uIU/mL (0.358-3.740)
[2017-09-09 14:10] VITALS: BP 167/74
[2017-09-09 14:56] VITALS: BP 137/71
[2017-09-09 15:12] VITALS: BP 150/66
[2017-09-09 19:37] VITALS: BP 168/97
[2017-09-09 23:21] VITALS: BP 153/95
[2017-09-10] VITALS (7 sets, daily range): BP systolic 136–200; BP diastolic 79–110
[2017-09-11 03:34] VITALS: BP 134/79
[2017-09-11 03:56] LABS: CALCIUM 8.7 mg/dL (8.5-10.1); CREATININE 0.8 mg/dL (0.6-1.0)
[2017-09-11 03:59] LABS: ABSOLUTE NEUTROPHILS 4.9 thou/uL (1.4-8.2); BASOPHILS 1.6 % (0.0-2.0); EOSINOPHILS 3.5 % (0.0-3.0); HEMATOCRIT 41.7 % (37.0-47.0); HEMOGLOBIN 14.1 gm/dL (12.0-15.0); LYMPHOCYTES 23.7 % (24.0-44.0); MCH 31.2 pg (26.0-34.0); MCHC 33.8 g/dL (28.0-37.0); MCV 92.1 fL (80.0-100.0); MONOCYTES 5.8 % (1.0-8.0); PLATELET COUNT 247 thou/uL (150-400); POLYS 65.4 % (36.0-66.0); RBC 4.53 mil/uL (4.20-5.00); RDW 13.2 % (10.5-14.5); WBC 7.6 thou/uL (4.0-11.0)
[2017-09-11 07:09] VITALS: BP 159/81
[2017-09-12 07:30] VITALS: BP 154/76
[2017-09-12 17:27] VITALS: BP 154/76
[2017-09-12 17:29] VITALS: BP 154/76
[2017-09-12 20:05] VITALS: BP 169/85
[2017-09-13 08:30] VITALS: BP 151/76
[2017-09-13] MEDS ORDERED: NITROGLYCERIN0.4 MG SUBLING (11:42)
[2017-09-13] MEDS ORDERED: METOPROLOL SUCC50 MG PO (11:44)
[2017-09-13] MEDS ORDERED: AMLODIPINE BESYL5 M1 PO (11:44)
[2017-09-13] MEDS ORDERED: TYLENOL EXTRA500 MG PO (11:44)
[2017-09-13] MEDS ORDERED: AMITRIPTYLINE H25 M2 PO (11:45)
[2017-09-13] MEDS ORDERED: DALMANE15 MG PO (11:46)
[2017-09-13] MEDS ORDERED: ALPRAZOLAM 0.0.25 M1 PO (11:46)
[2017-09-13] MEDS ORDERED: ONDANSETRON HCL4 M2 PO (11:47)
[2017-09-13] MEDS ORDERED: MIRALAX17 GM PO (11:47)
[2017-09-13] MEDS ORDERED: PANTOPRAZOLE SO40 M1 PO (11:48)
[2017-09-13] MEDS ORDERED: SYNTHROID75 MCG PO (11:50)
[2017-09-13] MEDS ORDERED: VITAMIN D3400 UNIT PO (11:50)
== END 2017-09-13 14:53 | disposition home health service (06) | DRG 149 ==
LOC: ER 09:21 → EROBS 10:55 → SICU 10:55 → 2N 10:55 → SICU 09-11 20:36
PROVIDERS: Internal Medicine; Nurse Practitioner; Physician Assistant
DX: R42 Dizziness and giddiness (principal); F33.1 Major depressive disorder, recurrent, moderate; N39.0 Urinary tract infection, site not specified; E03.9 Hypothyroidism, unspecified; H53.8 Other visual disturbances; Z66 Do not resuscitate; G62.9 Polyneuropathy, unspecified; I10 Essential (primary) hypertension; F41.9 Anxiety disorder, unspecified; Z60.2 Problems related to living alone; E55.9 Vitamin D deficiency, unspecified; G47.00 Insomnia, unspecified; R29.6 Repeated falls; R63.4 Abnormal weight loss; Z68.20 Body mass index [BMI] 20.0-20.9, adult; Z88.2 Allergy status to sulfonamides; Z88.8 Allergy status to other drugs, medicaments and biological substances; Z79.899 Other long term (current) drug therapy
CPT/HCPCS: 10081; 15002

== ENCOUNTER 2017-09-20 23:43 | Inpatient (IN) | payer OTHER ==
[~2017-09-20] VITALS: Ht 170.2 cm; Wt 63.5 kg
--- NOTE | ~2017-09-20 | EKG ---
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
[~2017-09-20 23:43] MED LIST changes: +ALPRAZOLAM 0.0.25 M1 PO; +AMLODIPINE BESYL5 M1 PO; +COMPAZINE10 MG PO; +DALMANE15 MG PO; +MELATONIN1 MG PO; +MELATONIN5 M1 PO; +METOPROLOL SUCC50 MG PO; +MIRALAX17 GM PO; +NITROGLYCERIN0.4 MG SUBLING; +PANTOPRAZOLE SO40 M1 PO; +STOOL SOFTENER100 M1 PO; +TOPROL XL100 MG PO; +TRAZODONE HCL100 MG PO; +TYLENOL EXTRA500 MG PO; +VITAMIN D3400 UNIT PO
[2017-09-20 23:44] VITALS: BP 139/82
[2017-09-21 01:13] LABS: ABSOLUTE NEUTROPHILS 6.4 thou/uL (1.4-8.2); EOSINOPHILS 1.6 % (0.0-3.0); HEMATOCRIT 40.1 % (37.0-47.0); HEMOGLOBIN 13.9 gm/dL (12.0-15.0); LYMPHOCYTES 17.6 % (24.0-44.0); MCH 31.5 pg (26.0-34.0); MCHC 34.6 g/dL (28.0-37.0); MONOCYTES 6.8 % (1.0-8.0); PLATELET COUNT 310 thou/uL (150-400); RBC 4.41 mil/uL (4.20-5.00); RDW 13.3 % (10.5-14.5); WBC 8.7 thou/uL (4.0-11.0)
[2017-09-21 01:20] LABS: CALCIUM 9.2 mg/dL (8.5-10.1); POTASSIUM 3.9 mmol/L (3.5-5.1)
[2017-09-21 03:03] VITALS: BP 189/92
[2017-09-21 03:55] VITALS: BP 177/90
[2017-09-21 08:40] VITALS: BP 181/97
[2017-09-21 11:33] LABS: TSH 2.224 uIU/mL (0.358-3.740)
[2017-09-21 15:22] VITALS: BP 166/99
[2017-09-21 20:16] VITALS: BP 134/78
[2017-09-22 04:22] VITALS: BP 158/96
[2017-09-22 06:53] LABS: CREATININE 0.9 mg/dL (0.6-1.0); POTASSIUM 3.4 mmol/L (3.5-5.1)
[2017-09-22 08:00] VITALS: BP 177/95
[2017-09-22] MEDS ORDERED: LISINOPRIL10 MG PO (15:47)
[2017-09-22] MEDS ORDERED: MIRALAX17 GM PO (15:47)
[2017-09-22] MEDS ORDERED: AMLODIPINE BESYL5 M1 PO (15:47)
[2017-09-22 16:00] VITALS: BP 163/94
== END 2017-09-22 17:22 | DRG 158 ==
LOC: ER 23:43 → 4W 09-21 02:15 → EROBS 09-21 02:15 → 4W 09-21 03:55
PROVIDERS: Emergency Medicine; Hospitalist; Nurse Practitioner Family
DX: S01.511A Laceration without foreign body of lip, initial encounter (principal); F33.1 Major depressive disorder, recurrent, moderate; R55 Syncope and collapse; I10 Essential (primary) hypertension; Z66 Do not resuscitate; Z60.2 Problems related to living alone; E78.5 Hyperlipidemia, unspecified; F41.9 Anxiety disorder, unspecified; M62.84 Sarcopenia; E87.6 Hypokalemia; R63.4 Abnormal weight loss; F03.90 Unspecified dementia, unspecified severity, without behavioral disturbance, psychotic disturbance, mood disturbance, and anxiety; G47.00 Insomnia, unspecified; F19.10 Other psychoactive substance abuse, uncomplicated; G62.9 Polyneuropathy, unspecified; S40.011A Contusion of right shoulder, initial encounter; Z79.899 Other long term (current) drug therapy; Z88.1 Allergy status to other antibiotic agents; Z88.2 Allergy status to sulfonamides; Z68.21 Body mass index [BMI] 21.0-21.9, adult; W18.30XA Fall on same level, unspecified, initial encounter; Y93.89 Activity, other specified; Y92.098 Other place in other non-institutional residence as the place of occurrence of the external cause; Y99.8 Other external cause status
CPT/HCPCS: 10045